=== PATIENT | male | born 1950 | race Caucasian/White ===

== ENCOUNTER 2019-05-17 16:53 | Emergency (ER) | payer OTHER ==
[~2019-05-17] VITALS: Ht 182.9 cm; Wt 99.8 kg
[~2019-05-17 16:53] MED LIST: ACCUNEB SO1.25 MG/1 PO; CO Q-10100 MG PO; FLOMAX0.4 MG PO; FLONASE 0.05%50 MCG NASAL; FLUNISOLIDE25 ML NASAL; PERCOCET 5-3251 EACH PO; PROVENTIL HFA6.7 G1 INH; RANITIDINE 150150 M1 PO; RANITIDINE HCL300 MG PO; TUMS PO; UNICOMPLEX M TA1 TA1 PO; [UNRECOGNIZED DRUG - OTHER] PO
[2019-05-17 19:25] VITALS: BP 165/96
== END 2019-05-17 19:26 | disposition home or self-care (01) ==
LOC: ER 16:53
DX: R05 Cough (principal); R50.9 Fever, unspecified; J44.9 Chronic obstructive pulmonary disease, unspecified; K21.9 Gastro-esophageal reflux disease without esophagitis; Z03.818 Encounter for observation for suspected exposure to other biological agents ruled out; Z79.899 Other long term (current) drug therapy; Z88.1 Allergy status to other antibiotic agents